=== PATIENT | male | born 1990 | race Caucasian/White ===

== ENCOUNTER 2017-06-06 18:33 | Emergency (ER) | payer OTHER ==
[~2017-06-06] VITALS: Ht 180.3 cm; Wt 100.6 kg
[~2017-06-06 18:33] MED LIST: DPKSR250 PO; FLUO20CA36 PO; KLN5 PO; SRQ200 PO
[2017-06-06 18:46] VITALS: TEMP 36.8; Ht 180.3 cm; Wt 100.6 kg
[2017-06-06] MEDS ORDERED: CEPH500C2 PO (20:00)
[2017-06-06] MEDS ORDERED: HYDR-5688 PO (20:00)
[2017-06-06] MEDS ORDERED: SULF800T23 PO (20:00)
[2017-06-06] MEDS ORDERED: ZIPR60CA PO (20:04)
[2017-06-06] MEDS ORDERED: ALPR1TAB3 PO (20:04)
[2017-06-06] MEDS ORDERED: BUSP15TA70 PO (20:04)
[2017-06-06] MEDS ORDERED: ZOLP10TA PO (20:04)
[2017-06-06 20:18] VITALS: BP 121/69; PULSE 80; O2SAT 97
[2017-06-06] MEDS ORDERED: NORCO 5/325MG HOME PACK ONE (20:29)
[2017-06-06] MEDS ORDERED: SEPTRA DS HOME PACK 1 EA VIAL PO ONE (20:30)
[2017-06-06] MEDS ORDERED: CEPHALEXIN 500MG HOME PACK 1 EA BTL PO ONE (20:30)
--- NOTE | 2017-06-07 02:09 | EMERGENCY ROOM VISIT NOTE ---
ED Visit Note First contact with patient: 19:35 CHIEF COMPLAINT: I have a boil on the left side of my hip. HISTORY OF PRESENT ILLNESS: Mr. Shepherd is an 26-year-old white male who ambulates into the ED complaining of a possible abscess on the left hip. Patient reports he noticed noticed a hard tender area just anterior to the left anterior inferior iliac spine 3 days ago. He reports this area is slowly getting larger, more painful and tender. He reports he has not been able to sleep because of the severity of his pain for the last 2 nights. He denies any precipitating soft tissue injuries or lesions. He reports yesterday the area was slightly erythematous but that seems to have slightly decreased. He reports he has not been picking or squeezing this area. Currently he describes his pain as a deep achy sensation that becomes sharp with palpation. He rates his discomfort 8/10. His pain is nonradiating. His pain worsens with palpation. He has not identified any alleviating factors related to the pain. He has not taken any medication for pain prior to arrival at the hospital. He denies any fevers, chills, sweats, other skin eruptions, other skin color changes, abdominal pain, decreased appetite, nausea, vomiting, chest pain, shortness of breath. REVIEW OF SYSTEMS: As noted above in history of present illness; 8 body systems reviewed with the patient and found to be negative unless noted above otherwise. PAST MEDICAL HISTORY: Pelvic fracture, seizure disorder, hepatitis C, bipolar disorder, depression, status post repair of undescended testicle. CURRENT MEDICATION: Xanax, Ambien, Geodon, BuSpar ALLERGIES TO MEDICATION: Toradol, tramadol. SOCIAL HISTORY: Patient feels safe in his home environment; patient admits to tobacco use. PHYSICAL EXAM: Vital Signs: Date Time Temp Pulse Resp B/P (MAP) Pulse Ox O2 Delivery O2 Flow Rate FiO2 06/06/17 20:18 80 18 121/69 97 06/06/17 18:46 36.8 89 18 134/81 96 Room Air General: 26 year-old white male in mild acute distress due to pain, nontoxic appearing, afebrile and hemodynamically stable. Neurological: Awake, alert and oriented to person, place and time. Answering questions appropriately and following commands. Skin: Warm, dry and pink. Left Pelvis: There is an indurated area just anterior to the anterior, inferior iliac spine which measures about 3.5 cm in diameter. This area is indurated but not fluctuant. There is mild erythema over this area but does not extend beyond the indurated area. There is no pointing or drainage. Additionally the skin above this area is dry and scaly. No lymphangitis. Thorax: Lungs sounds are clear to auscultation and equal bilaterally with symmetrical chest wall movement. No wheezing, rales or rhonchi. No increased respiratory effort. Abdomen: Flat, soft and nontender. Positive bowel sounds in all quadrants. No guarding or rigidity. ED COURSE: Patient is assessed as noted above. A [facility] medication list was reviewed. Patient was educated about his condition and instructed on his treatment plan; he verbalized understanding and agreement with this plan. CLINICAL IMPRESSION: Early skin abscess. DISPOSITION: Patient discharged to home in stable condition; prior to departure he was reassessed and subjectively reported he was feeling the same. PLAN: Was placed on a sliding pain scale of ibuprofen, acetaminophen and [place]; he was given appropriate precautions for narcotics use and his name was checked on state database and no red flags were noted. Patient was prescribed Bactrim and Keflex and instructed on their use. Patient was encouraged to follow-up with PCP or return to the ED in 36-48 hours for recheck. Patient was encouraged return the ED sooner for increasing redness/swelling, red streaking, puslike drainage, fevers or any new/concerning symptoms.
== END 2017-06-06 20:18 | disposition home or self-care (01) ==
LOC: C.EDB 18:35 → C.EDD 20:18
DX: L02.414 Cutaneous abscess of left upper limb (principal); G40.909 Epilepsy, unspecified, not intractable, without status epilepticus; B19.20 Unspecified viral hepatitis C without hepatic coma; F31.9 Bipolar disorder, unspecified; Z79.899 Other long term (current) drug therapy

== ENCOUNTER 2020-06-09 13:07 | Inpatient (IN) ==
[2020-06-09] MEDS ORDERED: OLANZapine 10 MG TAB PO STA (14:18)
--- NOTE | 2020-06-09 14:19 | Emergency Department Note ---
Impression & Plan Seizure, Mood disorder, Suicidal ideation ED Provider Note NAME: CHALO ARIAS JR AGE: 29 SEX: M : 1990 ARRIVES VIA: Walk-In INFORMANT: Patient, Family, assistant case manager ED PROVIDER(S): Ryley Krause DO CHIEF COMPLAINT: Seizures and thoughts of self-harm HPI: Patient is a 29-year-old male who presents the ER brought in on a 302 petition. He was seen here earlier today for 2 seizures. He notes that the doctor did not listen to him and consequently he left. He notes that his family state that his last seizure lasted about 10 seconds. Family noted that he had diffuse body shaking and was not responsive. He has had seizures since about the age of 15. He gets them about once a month. He is never been followed up with neurology. Currently he notes that he has a headache but that is typical after a seizure. He follows with psychiatrist who prescribes him Xanax and he was recently just flipped to Valium. He notes that he did not run out of Xanax. He was seen here earlier and left and came back after [address] in [address] against him. He admits to a headache about 8 out of 10 which is typical post seizure. He denies any focal weakness or numbness. No chest pain shortness of breath nausea vomiting or diarrhea. He denies any suicidal homicidal ideations. ROS: See above HPI for pertinent positives & negatives. A total of 10 systems reviewed and were otherwise negative. PAST MEDICAL HISTORY:See Below PAST SURGICAL HISTORY:See Below FAMILY HISTORY:See Below SOCIAL HISTORY:See Below HOME MEDICATIONS:See Below ALLERGIES:See Below VITALS:See Below PHYSICAL EXAMINATION: GENERAL: Sitting up in bed, alert, agitated, yelling EYE EXAM: normal conjunctiva. PERRL and EOM's grossly intact. OROPHARYNX: no exudate, no erythema, lips, buccal mucosa, and tongue normal and mucous membranes are moist NECK: supple, no nuchal rigidity, no adenopathy, non-tender LUNGS: Clear to auscultation. Normal chest wall mechanics HEART: no murmurs, S1 normal and S2 normal ABDOMEN: abdomen soft, non-tender, normo-active bowel sounds, no masses, no rebound or guarding. BACK: Back is symmetrical on inspection and there is no deformity, no midline tenderness, no CVA tenderness. SKIN: no rashes and no bruising UPPER EXTREMITIES: upper extremities are grossly normal. LOWER EXTREMITIES: No pitting edema. NEURO EXAM: Normal sensorium, cranial nerves II-XII grossly intact, normal speech, no weakness of arms, no weakness of legs. 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 Patient was seen here earlier today for 2 seizures. [facility] clinical care coordinator was able to contact family and family reports that he had an episode of unresponsiveness and diffuse body shaking. Per review of his chart he does have a history of benzo withdrawal seizures. Positions statement notes that he was making suicidal statements but no clear plan. He notes that he has diffuse myalgias. He does have a mild headache which is typical after seizure. He has no other complaints at this time. Neuro exam is intact. IV was attempted to be established but he declined. He was given oral Zyprexa and he became more agitated after blood work and eventually was given IM Haldol and Ativan for sedation as he was a danger to himself and everyone else around him as he was very threatening. Labs show mild leukocytosis of 13,000. No significant anemia. BMP with a slightly elevated chloride. LFTs bilirubin and troponin was negative. TSH unremarkable. UA negative. Tox was positive for benzos and marijuana. Alcohol was negative. CT head was negative. Patient was updated bedside. Recommended inpatient treatment he became extremely agitated. He was sedated using Haldol and Ativan.. 302 was not dispositioned per clinical care coordinator and 3 S. after discussion as he is not medically cleared. Triage Nursing notes reviewed. Prior medical records reviewed Vital Signs: reviewed and remarkable for hypertensive and tachycardic Differential diagnosis: Differential diagnosis includes etiologies such as infection, hypoglycemia, electrolyte abnormalities, cardiac sources, intracerebral event, trauma, toxicologic, neurologic, as well as others were entertained. ER treatment provided: See below Diagnostics interpreted by me: ECG: none Laboratory studies: As stated above and show below. Imaging studies: See below Consultation(s): none ED COURSE: Procedures: none Critical Care: I have personally spent 35 minutes of critical care time in the direct management of this patient. This includes bedside care, interpretation of diag nostic studies, and testing, discussion with consultants, patient, and family members, and other required patient management activities. This 35 minutes is in excess of all separately billable procedures. Past Med/Surg History Medical History (Updated 06/09/20 @ 18:27 by Lianet Bowie PA-C) Acute headache Anxiety Headache Hepatitis C No treatment PTSD (post-traumatic stress disorder) Surgical History (Updated 06/09/20 @ 18:11 by Lianet Bowie PA-C) S/P orchiopexy Family History Other No significant family history Social History (Updated 06/09/20 @ 18:12 by Lianet Bowie PA-C) Smoking Status: Current every day smoker Tobacco Type: Cigarettes and E-cigarettes / Vaping Hx Alcohol Use: No Hx Substance Use: Yes Prescribed Medications: Marijuana Preferred Language: Welsh Feels Safe at Home: No Allergies Allergies Allergy/AdvReac Type Severity Reaction Status Date / Time ketorolac Allergy Intermediate HIVES Verified 05/08/20 15:15 tramadol Allergy Intermediate hives Verified 05/08/20 15:15 acetaminophen AdvReac Severe PT HAS HEP Verified 05/08/20 15:15 C-LIVER DISEASE. Home Meds Home Medications Medication Instructions Recorded Confirmed alprazolam [Xanax] 1 mg PO TID 05/07/20 06/09/20 fluoxetine [Prozac] 10 mg PO HS 05/07/20 06/09/20 Medical Marijuana 1 applic INHALATION BID 06/09/20 06/09/20 diazepam 2 mg PO BID 06/09/20 06/09/20 escitalopram oxalate 5 mg PO DAILY 06/09/20 06/09/20 Results & Data (ED) Vital Signs Vital Signs - 24 hr 06/09/20 13:10 06/09/20 16:30 Pulse Rate 119 H Pulse Rate [Apical] 95 H Respiratory Rate 24 18 Respiratory Effort / Characteristics Non-Labored Spontaneous Respiratory Depth Normal Respiratory Pattern Regular Blood Pressure 155/109 H Blood Pressure [Left Arm] 145/89 H Blood Pressure Mean 124 Blood Pressure Mean [Left Arm] 107 Pulse Oximetry 100 98 Oxygen Delivery Method Room Air Sepsis Recent Fever Within 48 Hours No Sepsis New/Unexplained Change in Mental Status No Sepsis Action Taken by Nursing No Action Required Laboratory Data Result diagrams: 06/09/20 14:26 06/09/20 14:26 Lab Results 06/09/20 06/09/20 06/09/20 Range/Units 14:26 14:26 14:26 WBC 13.46 H (4.8-10.8) K/uL RBC 4.59 L (4.7-6.1) M/uL Hgb 16.1 (14.0-18.0) g/dL Hct 46.4 (42-52) % MCV 101.1 H (80-100) fL MCH 35.1 H (25-34) pg MCHC 34.7 (32-36) g/dL RDW Std Deviation 50.7 H (36.4-46.3) fL RDW Coeff of Wendy 13.5 (11.5-14.5) % Plt Count 161 (130-400) K/uL MPV 10.6 H (7.4-10.4) fL Immature Gran % (Auto) 0.2 % Neut % (Auto) 83.8 % Lymph % (Auto) 11.2 % [place] % (Auto) 4.0 % Eos % (Auto) 0.7 % Baso % (Auto) 0.1 % Neut # (Auto) 11.27 H (1.4-6.5) K/uL Lymph # (Auto) 1.51 (1.2-3.4) K/uL [place] # (Auto) 0.54 (0.11-0.59) K/uL Eos # (Auto) 0.09 (0-0.5) K/uL Baso # (Auto) 0.02 (0-0.2) K/uL Immature Gran # (Auto) 0.03 H (0.00-0.02) K/uL Sodium 142 (136-145) mmol/L Potassium 4.0 (3.5-5.1) mmol/L Chloride 114 H (98-107) mmol/L Carbon Dioxide 24 (21-32) mmol/L Anion Gap 4.0 (3-11) BUN 15 (7-18) mg/dl Creatinine 1.20 (0.6-1.4) mg/dl Est Cr Clr Drug Dosing Not Reportable Est GFR ( Amer) 93.5 Est GFR (Non-Af Amer) 80.7 BUN/Creatinine Ratio 12.8 (10-20) Glucose 105 H (70-99) mg/dl Calcium 8.8 (8.5-10.1) mg/dl Total Bilirubin 0.7 (0.2-1) mg/dl AST 20 (15-37) U/L ALT 48 (12-78) U/L Alkaline Phosphatase 56 (45-117) U/L Total Creatine Kinase (39-308) U/L Troponin I (0-0.045) ng/ml Total Protein 7.2 (6.4-8.2) gm/dl Albumin 3.6 (3.4-5.0) gm/dl Globulin 3.6 (2.5-4.0) gm/dl Albumin/Globulin Ratio 1.0 (0.9-2) TSH 1.240 (0.300-4.500) uIu/ml Urine Color Urine Appearance (Clear) Urine pH (4.5-7.5) Ur Specific [place] (1.000-1.030) Urine Protein (Negative) Urine Glucose (UA) (Negative) Urine Ketones (Negative) Urine Blood (Negative) Urine Nitrite (Negative) Urine Bilirubin (Negative) Urine Urobilinogen (Negative) Ur Leukocyte Esterase (Negative) Salicylates 2.3 L (2.8-20) mg/dl Urine Opiates Screen (Neg) Ur Methadone, Qual (Neg) Acetaminophen < 2 L (10-30) ug/ml Urine Barbiturates (Neg) Ur Phencyclidine (PCP) (Neg) U Amphetamin/Meth Scrn (Neg) MDMA (Ecstasy) Screen (Neg) U Benzodiazepines Scrn (Neg) Ur Cocaine Metabolite (Neg) U Marijuana (THC) Screen (Neg) Ethyl Alcohol mg/dL (0-3) mg/dl 06/09/20 06/09/20 06/09/20 Range/Units 14:26 14:26 14:26 WBC (4.8-10.8) K/uL RBC (4.7-6.1) M/uL Hgb (14.0-18.0) g/dL Hct (42-52) % MCV (80-100) fL MCH (25-34) pg MCHC (32-36) g/dL RDW Std Deviation (36.4-46.3) fL RDW Coeff of Wendy (11.5-14.5) % Plt Count (130-400) K/uL MPV (7.4-10.4) fL Immature Gran % (Auto) % Neut % (Auto) % Lymph % (Auto) % [place] % (Auto) % Eos % (Auto) % Baso % (Auto) % Neut # (Auto) (1.4-6.5) K/uL Lymph # (Auto) (1.2-3.4) K/uL [place] # (Auto) (0.11-0.59) K/uL Eos # (Auto) (0-0.5) K/uL Baso # (Auto) (0-0.2) K/uL Immature Gran # (Auto) (0.00-0.02) K/uL Sodium (136-145) mmol/L Potassium (3.5-5.1) mmol/L Chloride (98-107) mmol/L Carbon Dioxide (21-32) mmol/L Anion Gap (3-11) BUN (7-18) mg/dl Creatinine (0.6-1.4) mg/dl Est Cr Clr Drug Dosing Est GFR ( Amer) Est GFR (Non-Af Amer) BUN/Creatinine Ratio (10-20) Glucose (70-99) mg/dl Calcium (8.5-10.1) mg/dl Total Bilirubin (0.2-1) mg/dl AST (15-37) U/L ALT (12-78) U/L Alkaline Phosphatase (45-117) U/L Total Creatine Kinase 137 (39-308) U/L Troponin I < 0.015 (0-0.045) ng/ml Total Protein (6.4-8.2) gm/dl Albumin (3.4-5.0) gm/dl Globulin (2.5-4.0) gm/dl Albumin/Globulin Ratio (0.9-2) TSH (0.300-4.500) uIu/ml Urine Color Urine Appearance (Clear) Urine pH (4.5-7.5) Ur Specific [place] (1.000-1.030) Urine Protein (Negative) Urine Glucose (UA) (Negative) Urine Ketones (Negative) Urine Blood (Negative) Urine Nitrite (Negative) Urine Bilirubin (Negative) Urine Urobilinogen (Negative) Ur Leukocyte Esterase (Negative) Salicylates (2.8-20) mg/dl Urine Opiates Screen (Neg) Ur Methadone, Qual (Neg) Acetaminophen (10-30) ug/ml Urine Barbiturates (Neg) Ur Phencyclidine (PCP) (Neg) U Amphetamin/Meth Scrn (Neg) MDMA (Ecstasy) Screen (Neg) U Benzodiazepines Scrn (Neg) Ur Cocaine Metabolite (Neg) U Marijuana (THC) Screen (Neg) Ethyl Alcohol mg/dL < 3.0 (0-3) mg/dl 06/09/20 06/09/20 Range/Units 15:05 15:05 WBC (4.8-10.8) K/uL RBC (4.7-6.1) M/uL Hgb (14.0-18.0) g/dL Hct (42-52) % MCV (80-100) fL MCH (25-34) pg MCHC (32-36) g/dL RDW Std Deviation (36.4-46.3) fL RDW Coeff of Wendy (11.5-14.5) % Plt Count (130-400) K/uL MPV (7.4-10.4) fL Immature Gran % (Auto) % Neut % (Auto) % Lymph % (Auto) % [place] % (Auto) % Eos % (Auto) % Baso % (Auto) % Neut # (Auto) (1.4-6.5) K/uL Lymph # (Auto) (1.2-3.4) K/uL [place] # (Auto) (0.11-0.59) K/uL Eos # (Auto) (0-0.5) K/uL Baso # (Auto) (0-0.2) K/uL Immature Gran # (Auto) (0.00-0.02) K/uL Sodium (136-145) mmol/L Potassium (3.5-5.1) mmol/L Chloride (98-107) mmol/L Carbon Dioxide (21-32) mmol/L Anion Gap (3-11) BUN (7-18) mg/dl Creatinine (0.6-1.4) mg/dl Est Cr Clr Drug Dosing Est GFR ( Amer) Est GFR (Non-Af Amer) BUN/Creatinine Ratio (10-20) Glucose (70-99) mg/dl Calcium (8.5-10.1) mg/dl Total Bilirubin (0.2-1) mg/dl AST (15-37) U/L ALT (12-78) U/L Alkaline Phosphatase (45-117) U/L Total Creatine Kinase (39-308) U/L Troponin I (0-0.045) ng/ml Total Protein (6.4-8.2) gm/dl Albumin (3.4-5.0) gm/dl Globulin (2.5-4.0) gm/dl Albumin/Globulin Ratio (0.9-2) TSH (0.300-4.500) uIu/ml Urine Color Yellow Urine Appearance Clear (Clear) Urine pH 6.0 (4.5-7.5) Ur Specific [place] 1.025 (1.000-1.030) Urine Protein Negative (Negative) Urine Glucose (UA) Negative (Negative) Urine Ketones Negative (Negative) Urine Blood Negative (Negative) Urine Nitrite Negative (Negative) Urine Bilirubin Negative (Negative) Urine Urobilinogen Positive H (Negative) Ur Leukocyte Esterase Negative (Negative) Salicylates (2.8-20) mg/dl Urine Opiates Screen Neg (Neg) Ur Methadone, Qual Neg (Neg) Acetaminophen (10-30) ug/ml Urine Barbiturates Neg (Neg) Ur Phencyclidine (PCP) Neg (Neg) U Amphetamin/Meth Scrn Neg (Neg) MDMA (Ecstasy) Screen Neg (Neg) U Benzodiazepines Scrn Pos H (Neg) Ur Cocaine Metabolite Neg (Neg) U Marijuana (THC) Screen Pos H (Neg) Ethyl Alcohol mg/dL (0-3) mg/dl Administered Medications Discontinued Medications Haloperidol Lactate (Haloperidol Lactate 5 Mg/Ml 1 Ml Vial) 10 mg IM NOW STA Stop: 06/09/20 16:17 Last Admin: 06/09/20 16:30 Dose: 10 mg Documented by: [id number] Sodium Chloride (Nss 1000ml) 1,000 mls @ 999 mls/hr IV .Q1H1M ONE Stop: 06/09/20 15:24 Last Admin: 06/09/20 14:50 Dose: Not Given Documented by: [id number] Lorazepam (Lorazepam 2 Mg/Ml Vial (Im Use)) 2 mg IM NOW STA Stop: 06/09/20 16:17 Last Admin: 06/09/20 16:30 Dose: 2 mg Documented by: [id number] Olanzapine (Olanzapine 10 Mg Tab) 10 mg PO NOW STA Stop: 06/09/20 14:19 Last Admin: 06/09/20 14:49 Dose: 10 mg Documented by: [id number] Discharge Plan Visit Data Chief Complaint: Mental Health Evaluation Stated Complaint: 302 ED Provider: Ryley Krause Discharge Problem: Seizure, Mood disorder, Suicidal ideation Patient Disposition: Against Medical Advice Discharge Instructions Interventions: ED Discharge Assessment Last Done: 06/09/20 18:36
[2020-06-09] MEDS ORDERED: SODIUM CHLORIDE 0.9% 1000ML 1,000 ML IV ONE (14:24)
[2020-06-09 14:42] LABS: Basophils # (auto) 0.02 K/uL (0-0.2); Basophils % (auto) 0.1 %; Eosinophils # (auto) 0.09 K/uL (0-0.5); Eosinophils % (auto) 0.7 %; Hematocrit (blood only) 46.4 % (42-52); Hemoglobin 16.1 g/dL (14.0-18.0); Immature Granulocytes # (auto) 0.03 K/uL (0.00-0.02); Immature Granulocytes % (auto) 0.2 %; Lymphocytes # (auto) 1.51 K/uL (1.2-3.4); Lymphocytes % (auto) 11.2 %; Mean Corpuscular Hemoglobin 35.1 pg (25-34); Mean Corpuscular Hgb Conc 34.7 g/dL (32-36); Mean Corpuscular Volume 101.1 fL (80-100); Mean Platelet Volume 10.6 fL (7.4-10.4); Monocytes # (auto) 0.54 K/uL (0.11-0.59); Neutrophils # (auto) 11.27 K/uL (1.4-6.5); Neutrophils % (auto) 83.8 %; Platelet Count 161 K/uL (130-400); RDW Coefficient of Variation 13.5 % (11.5-14.5); RDW Standard Deviation 50.7 fL (36.4-46.3); Red Blood Count 4.59 M/uL (4.7-6.1); White Blood Count 13.46 K/uL (4.8-10.8)
[2020-06-09 14:58] LABS: Alanine Aminotransferase 48 U/L (12-78); Albumin Level 3.6 gm/dl (3.4-5.0); Aspartate Aminotransferase 20 U/L (15-37); BUN Creatinine Ratio 12.8 (10-20); Blood Urea Nitrogen 15 mg/dl (7-18); Calcium 8.8 mg/dl (8.5-10.1); Carbon Dioxide 24 mmol/L (21-32); Chloride 114 mmol/L (98-107); Est GFR (African American) 93.5; Est GFR (Non-African American) 80.7; Glucose 105 mg/dl (70-99); Sodium 142 mmol/L (136-145)
[2020-06-09 15:04] LABS: Acetaminophen < 2 ug/ml (10-30)
[2020-06-09 15:05] LABS: Salicylate 2.3 mg/dl (2.8-20)
[2020-06-09 15:09] LABS: Alkaline Phosphatase 56 U/L (45-117); Bilirubin,Total 0.7 mg/dl (0.2-1); Globulin 3.6 gm/dl (2.5-4.0); Total Protein 7.2 gm/dl (6.4-8.2)
[2020-06-09 15:25] LABS: Appearance Urine Clear (Clear); Bilirubin Urine Negative (Negative); Blood Urine Negative (Negative); Color Urine Yellow; Glucose Urine UA Negative (Negative); Ketones Urine Negative (Negative); Leukocyte Esterase Urine Negative (Negative); Nitrite Urine Negative (Negative); Protein Urine Negative (Negative); Specific Gravity Urine 1.025 (1.000-1.030); Urobilinogen Urine Positive (Negative)
--- NOTE | 2020-06-09 15:46 | CT Scan Report ---
CT head/brain wo con CLINICAL HISTORY: 29 years-old Male with seizure. Acute seizure TECHNIQUE: Multiple axial CT images of the head were obtained without contrast. A dose lowering tech nique was utilized adhering to the principles of ALARA. CT DOSE: 1151.75 mGy.cm COMPARISON: Head CT 05/08/2020 FINDINGS: No acute intracranial hemorrhage, midline shift, intracranial mass, hydrocephalus, territorial ischem ia or abnormal extra-axial collection. Artifact from the patient's earrings limits the study. The calvarium is intact. Trace left mastoid effusion. Mild polypoid mucosal thickening of the right maxillary sinus. Mild mucosal thickening of the ethmoid and maxillary sinuses. Soft tissues and orbit s are unremarkable. IMPRESSION: No acute intracranial abnormality. ACT 112: Negative or not required by law. The above report was generated using voice recognition software. It may contain grammatical, syntax o r spelling errors. Electronically signed by: Narinder Gould M.D. 06/09/2020 3:45 PM
[2020-06-09 16:01] LABS: Amphetamines+Metham, Urine Neg (Neg); Barbiturates, Urine Neg (Neg); Benzodiazepine, Urine Pos (Neg); Cocaine, Urine Neg (Neg); MDMA (Ecstacy), Urine Neg (Neg); Methadone, Urine Neg (Neg); Opiate, Urine Neg (Neg); Phencyclidine, Urine Neg (Neg)
[2020-06-09] MEDS ORDERED: LORazepam 2 MG/ML VIAL (IM USE) IM STA (16:16)
[2020-06-09] MEDS ORDERED: HALOPERIDOL LACTATE 5 MG/ML 1 ML VIAL IM STA (16:16)
--- NOTE | 2020-06-09 18:08 | History & Physical Report ---
Date of Service June 09, 2020 Assessment & Plan (1) Seizure: P is 29 y/o M with PMH hepatitis C, h/o withdrawal seizures, anxiety presented to ER with complaint of 2 seizures earlier today. Patient was seen in ER earlier today for reported 2 witnessed seizures with report last seizure last ing approximately 10 seconds. Denies loss control of bowel/bladder. He reported SIMON and generalized body aching after seizure. Patient left ER earlier today. Pt denies h/o follow up with neurology for seizures Suspect seizures are secondary to benzo withdrawal. Pt does report h/o seizures occurring after he is out of his benzo's. CT head negative. WBC: 13, no significant electrolyte abnormality. UA not consistent with infection. Urine drug screen +benzo, +marijuana, Negative acetaminophen level, salicylate level low at 2.3. Negative ETOH level -No seizure like activity while in ER -In ER given -Admit tele -Seizure precautions -Will add CK level since pt c/o generalized muscle aching -Ativan prn seizure like activity -Consider neurology consult (2) Suicidal ideation: (3) Anxiety: Pt has 302 warrant. His out patient protective services case worker concerned for suicidal statements that he has been making. Patient follows up with outpatient mental health and usually sees Keri Headley PA-C. Has been on Xanax 1 mg 3 times daily for years per pt. States he is recently been on fluoxetine 10 mg daily. Today he was given new prescriptions to change from Xanax to Valium 2 mg twice daily. And change from Prozac to Lexapro 5 mg daily -In ER reported pt became combative. He was given Zyprexa 10mg po. Later given Ativan 2mg IM and Haldol 10mg IM -Pt was irritable and restless upon initial hospitalist exam but not combative -Will continue Xanax and Prozac since he has not started his new prescriptions yet -Suicidal precautions and one to one observation -Psychiatry consult DVT Prophylaxis: low risk, ambulate PCP: Dr Weathers, however has not seen for several years Pt was seen and care coordinated with Dr Scruggs. See addendum History of Present Illness Chief Complaint: Seizure, suicidal ideations Primary Care Provider: Dr Weathers Pt is 29 y/o M with PMH hepatitis C, h/o withdrawal seizures, anxiety presented to ER with complaint of seizures. Patient was seen in ER earlier today for reported 2 witnessed seizures with report last seizure lasting approximately 10 seconds. Patient left ER earlier today. Patient has outpatient protective services case worker who filed 302 warrant. It is reported patient was making suicidal statements. Patient was returned to ER later this afternoon. Patient states after has seizure has headache and generalized body aching. Currently patient reports having headache and generalized body pain which he reports is typical after his seizure. Denies loss of control of bowel or bladder. Patient states has had seizures since he was a teenager. He reports he had seizure in the past when he is out of his Xanax. Patient states is never followed up with neurology in the past. He reports he is on medical marijuana. Patient denies alcohol use. Patient reports follows up with outpatient mental health and usually sees Keri Headley PA-C. He reports he has been on Xanax 1 mg 3 times daily for years. States he is recently been on fluoxetine 10 mg daily. He reports that he was to be changed from Xanax to Valium 2 mg twice daily today and his Prozac has been changed to Lexapro 5 mg daily. Patient was unable to get to the pharmacy yet today to get his new prescriptions filled. Patient states last took his Xanax yesterday. Patient is irritated that he is here and that he cannot go home. He states that he always makes statements that he wishes he was , and reports he is unsure why today this is a problem. Patient denies any plan to this provider. Denies fever/chills, diaphoresis, N/V/D/C, dizziness, vision changes, CP, SOB, orthopnea, palpitations, cough, sore throat, choking, otalgia, rhinorrhea, abdominal pain, paresthesias, weakness, extremity edema, rashes, urinary symptoms. Allergies Allergy/AdvReac Type Severity Reaction Status Date / Time ketorolac Allergy Intermediate HIVES Verified 05/08/20 15:15 tramadol Allergy Intermediate hives Verified 05/08/20 15:15 acetaminophen AdvReac Severe PT HAS HEP Verified 05/08/20 15:15 C-LIVER DISEASE. Home Medications Home Medications Medication Instructions Recorded Confirmed Type alprazolam [Xanax] 1 mg PO TID 05/07/20 06/09/20 History fluoxetine [Prozac] 10 mg PO HS 05/07/20 06/09/20 History Medical Marijuana 1 applic INHALATION BID 06/09/20 06/09/20 History diazepam 2 mg PO BID 06/09/20 06/09/20 History escitalopram oxalate 5 mg PO DAILY 06/09/20 06/09/20 History Past Med/Surg History Medical History (Updated 06/09/20 @ 18:27 by Lianet Bowie PA-C) Acute headache Anxiety Headache Hepatitis C No treatment PTSD (post-traumatic stress disorder) Surgical History (Updated 06/09/20 @ 18:11 by Lianet Bowie PA-C) S/P orchiopexy Family History Other No significant family history Social History (Updated 06/09/20 @ 18:12 by Lianet Bowie PA-C) Smoking Status: Unknown if ever smoked Tobacco Type: Cigarettes and E-cigarettes / Vaping Preferred Language: Maori Glass Installer Required: No Beliefs That Will Affect Care: None Current Living Situation Comment: unable to obtain Feels Safe at Home: No Review of Systems Review of Systems: All systems reviewed & are unremarkable except as noted in HPI & below Physical Exam Physical Exam: General: no acute distress, WDWN Head: normocephalic, atraumatic Eyes: PERRL, conjunctiva non-injected, anicteric ENT: normal inspection external ears, nose, mucous membranes moist Neck: supple, trachea midline Lungs: clear, no respiratory distress, no wheezing/rhonchi/rales CV: RRR, no murmur,no pretibial edema Abd: normal BS, soft, non-tender Ext: no cyanosis, actively moves all 4 extremities Neuro: Initially pt sleeping. Awakens to voice. Pt initially calm then becomes irritable but is not currently aggressive at this time. He does start pacing throughout room and is mad that someone wrote a 302 warrant. A&O x 3, no focal deficits noted Skin: warm, dry Results & Data Results & Data ([facility]) Vital Signs (Past 12 Hours) Vital Signs Pulse Pulse Resp BP BP Pulse Ox 06/09/20 16:30 95 H 18 145/89 H 98 06/09/20 13:10 119 H 24 155/109 H 100 Laboratory Results Short CBC 06/09/20 Range/Units 14:26 WBC 13.46 H (4.8-10.8) K/uL Hgb 16.1 (14.0-18.0) g/dL Hct 46.4 (42-52) % Plt Count 161 (130-400) K/uL BMP 06/09/20 14:26 Sodium 142 Potassium 4.0 Chloride 114 H Carbon Dioxide 24 BUN 15 Creatinine 1.20 Glucose 105 H Calcium 8.8 Cardiac Enzymes 06/09/20 Range/Units 14:26 Troponin I < 0.015 (0-0.045) ng/ml Liver Function 06/09/20 Range/Units 14:26 Total Bilirubin 0.7 (0.2-1) mg/dl AST 20 (15-37) U/L ALT 48 (12-78) U/L Alkaline Phosphatase 56 (45-117) U/L Albumin 3.6 (3.4-5.0) gm/dl Urine 06/09/20 Range/Units 15:05 Urine Color Yellow Urine Appearance Clear (Clear) Urine pH 6.0 (4.5-7.5) Ur Specific [place] 1.025 (1.000-1.030) Urine Protein Negative (Negative) Urine Glucose (UA) Negative (Negative) Diagnostic Findings CT HEAD: IMPRESSION: No acute intracranial abnormality. Code Status & VTE Plan VTE Prophylaxis Plan VTE Prophylaxis will be ordered: No Supervising Physician Co-Signing Physician Notes I have seen and examined the patient and have discussed the case with the provider above. I agree with the assessment and plan as stated. 29 yo M on chronic benzos, medical marijuana who presented to the ER reporting seizures earlier today. His outpatient protective services case worker 302'd him for suicidal statements. Agree with benzo reinstatement as these were thought to be withdrawal seizures. He may need to weaned much more slowly as outpatient. This evening, after having violent outbursts in the ER and receiving zyrexa, haldol and benzos he was sleeping soundly. His HR continued to fall, so I ordered an EKG. He started in on another violent outburst, screaming at the nursing staff and curs ing again and again. He was yelling about how he was miserable and wasn't able to get sleep because everyone wanted an EKG or something. He then lunged at me violently despite me trying to explain why I ordered the EKG. A prabha camacho was called and the information security consultant was able to talk him down. This was after he pushed everyone out of the room screaming and violently slammed the door. As he was threatening staff and trying to take off medical devices including his bus driver/monitor and his IV, he was given additional Ativan as a chemical restraint. His violent restraints were reordered. He declined physical exam so no other info could be gathered. He was screaming so aggressively there was no chance of questioning him successfully. Will consult Neurology formally to weigh in on the seizures. Kael, DO
[2020-06-09] MEDS ORDERED: IBUPROFEN 600 MG TAB PO PRN (18:49)
[2020-06-09] MEDS ORDERED: LORazepam 1 MG/2 ML VIAL IV PRN ×2 (18:49→22:47)
[2020-06-09] MEDS ORDERED: PATIENT'S HEIGHT AND/OR WEIGHT NEEDED SCH (19:00)
[2020-06-09] MEDS: ALPRAZolam 0.5 MG TABLET PO SCH (21:32)
[2020-06-09] MEDS: FLUOXETINE HCL 10 MG CAP PO SCH (21:32)
[2020-06-09] MEDS ORDERED: LORazepam 1 MG/2 ML VIAL IV STA (21:49)
[2020-06-09] MEDS ORDERED: OLANZapine 10 MG/2.1 ML SDV IM ONE (21:49)
[2020-06-09] MEDS: NICOTINE 21 MG/24 HR TDSY TD SCH (22:09)
--- NOTE | 2020-06-10 08:24 | Hospitalist Progress Note ---
Date of Service June 10, 2020 Assessment & Plan (1) Seizure: P is 29 y/o M with PMH hepatitis C, h/o withdrawal seizures, anxiety presented to ER with complaint of 2 seizures prior to admission. Patient was seen in ER earlier for reported 2 witnessed seizures with report last seizure lasting approximately 10 seconds. Denies loss control of bowel/bladder. He reported SIMON and generalized body aching after seizure. Patient left ER earlier. Patient reports history of seizures since he was 15 years old. He is not aware of etiology of seizures. Pt denies h/o follow up with neurology for seizures States that he was planning to establish care with neurology upcoming week Reports having a seizure about every month, last one in April prior to the episodes described above. Patient states that it is usually "stress related". Suspect seizures are secondary to benzo withdrawal. Pt does report h/o seizures occurring after he is out of his benzo's. CT head negative. WBC: 13, no significant electrolyte abnormality. UA not consistent with infection. Urine drug screen +benzo, +marijuana, Negative acetaminophen level, salicylate level low at 2.3. Negative ETOH level -No seizure like activity while in ER -Admitted to tele -Seizure precautions -added CK level since pt c/o generalized muscle aching on admission -Ativan prn seizure like activity -Neurology consulted, appreciate their input (2) Suicidal ideation: (3) Anxiety: Pt has 302 warrant. His out patient block and case maker concerned for suicidal statements that he has been making. Patient follows up with outpatient mental health and usually sees Keri Headley PA-C. Has been on Xanax 1 mg 3 times daily for years per pt. States he is recently been on fluoxetine 10 mg daily. Just prior to admission, he was given new prescriptions to change from Xanax to Valium 2 mg twice daily. And change from Prozac to Lexapro 5 mg daily -In ER reported pt became combative. He was given Zyprexa 10mg po. Later given Ativan 2mg IM and Haldol 10mg IM -Pt was irritable and restless upon initial hospitalist exam on admission but not combative -on admission continued Xanax and Prozac since he has not started his new prescriptions yet -Suicidal precautions and one to one observation -Psychiatry consulted, Valium ordered by psychiatry, patient again agitated when being evaluated by psychiatrist. DVT Prophylaxis: low risk, ambulate PCP: Dr Weathers, however has not seen for several years Admission and Anticipated Discharge Date Admission Date: June 09, 2020 Subjective Patient is lying in bed, sleeping comfortably. Examined patient in the presence of his nurse and one-on-one sitter. Patient's nurse gently woke him up, and offered medication, Valium prescribed by psychiatry earlier. Patient is very pleasant, and cooperative, answering most questions appropriately. Previously, yesterday on admission, patient very agitated, prabha camacho had to be called. Again this morning, when patient was supposed to be evaluated by psychiatrist, patient became very agitated, stating he is a morning person and security was again called. Currently he is calm and pleasant. States that he had 2 seizures yesterday, states that he has been having seizures since he was 15 years old. When I asked him if he follows with neurology, he says that was supposed to get established care with neurologist on Friday/somebody was supposed to call on Friday to get appointment?. He does not recall ever taking Keppra or reason for his seizures. Says that they are stress induced, last one prior to yesterday was in April, says that it was secondary to stress from his grandmother dying, and being in the heat. Says that he has seizure about every month. He does follow with mental health provider. Currently denies any fevers, chills, chest pain, shortness of breath, abdominal pain, nausea or vomiting. Denies headaches. Denies any double vision. Denies any weakness, numbness or tingling. Review of Systems Review of Systems: All systems reviewed & are unremarkable except as noted in HPI & below Constitutional: no fever and no chills Respiratory: no cough and no dyspnea Cardiovascular: no chest pain and no palpitations Gastrointestinal: no abdominal pain, no nausea and no vomiting Musculoskeletal: no stiffness and no muscle weakness Neurologic: no localized weakness, no loss of sensation, no paresthesia, no tremor(s), no dizziness, no headache(s), no abnormal speech and no confusion Psychiatric: + irritability Physical Exam Physical Exam: General: Young male lying in bed, in no acute distress, WDWN Head: normocephalic, atraumatic Eyes: PERRL, conjunctiva non-injected, anicteric ENT: normal inspection external ears, nose, mucous membranes moist Neck: supple, trachea midline Lungs: clear, no respiratory distress, no wheezing/rhonchi/rales CV: RRR, no murmur,no pretibial edema Abd: normal BS, soft, non-tender Ext: no cyanosis, actively moves all 4 extremities Neuro: Initially pt sleeping. Awakens to voice. He is alert and oriented x3, answering questions mostly appropriately, speech is fluent, moves all 4 extremities spontaneously without difficulty Psych: Poor insight Skin: warm, dry Results & Data Results & Data ([facility]) Vital Signs (Past 12 Hours) Vital Signs Pulse Pulse BP 06/10/20 05:08 62 06/09/20 21:18 48 L 93/58 L Laboratory Results 06/09/20 06/09/20 06/09/20 Range/Units 20:42 15:05 15:05 WBC (4.8-10.8) K/uL RBC (4.7-6.1) M/uL Hgb (14.0-18.0) g/dL Hct (42-52) % MCV (80-100) fL MCH (25-34) pg MCHC (32-36) g/dL RDW Std Deviation (36.4-46.3) fL RDW Coeff of Wendy (11.5-14.5) % Plt Count (130-400) K/uL MPV (7.4-10.4) fL Immature Gran % (Auto) % Neut % (Auto) % Lymph % (Auto) % [place]ran % (Auto) % Eos % (Auto) % Baso % (Auto) % Neut # (Auto) (1.4-6.5) K/uL Lymph # (Auto) (1.2-3.4) K/uL [place]ran # (Auto) (0.11-0.59) K/uL Eos # (Auto) (0-0.5) K/uL Baso # (Auto) (0-0.2) K/uL Immature Gran # (Auto) (0.00-0.02) K/uL Sodium (136-145) mmol/L Potassium (3.5-5.1) mmol/L Chloride (98-107) mmol/L Carbon Dioxide (21-32) mmol/L Anion Gap (3-11) BUN (7-18) mg/dl Creatinine (0.6-1.4) mg/dl Est Cr Clr Drug Dosing Est GFR ( Amer) Est GFR (Non-Af Amer) BUN/Creatinine Ratio (10-20) Glucose (70-99) mg/dl POC Glucose 89 (70-99) mg/dl Calcium (8.5-10.1) mg/dl Total Bilirubin (0.2-1) mg/dl AST (15-37) U/L ALT (12-78) U/L Alkaline Phosphatase (45-117) U/L Total Creatine Kinase (39-308) U/L Troponin I (0-0.045) ng/ml Total Protein (6.4-8.2) gm/dl Albumin (3.4-5.0) gm/dl Globulin (2.5-4.0) gm/dl Albumin/Globulin Ratio (0.9-2) TSH (0.300-4.500) uIu/ml Urine Color Urine Appearance (Clear) Urine pH (4.5-7.5) Ur Specific [place] (1.000-1.030) Urine Protein (Negative) Urine Glucose (UA) (Negative) Urine Ketones (Negative) Urine Blood (Negative) Urine Nitrite (Negative) Urine Bilirubin (Negative) Urine Urobilinogen (Negative) Ur Leukocyte Esterase (Negative) Salicylates (2.8-20) mg/dl Urine Opiates Screen Neg (Neg) Ur Methadone, Qual Neg (Neg) Acetaminophen (10-30) ug/ml Urine Barbiturates Neg (Neg) Ur Phencyclidine (PCP) Neg (Neg) U Amphetamin/Meth Scrn Neg (Neg) MDMA (Ecstasy) Screen Neg (Neg) U OH-Alprazolam Confrm Pending U Benzodiazepines Scrn Pos H (Neg) 7-Amino Clonazepam Pending Ur Nordiazepam Confirm Pending U OH-ethylflurazepam Pending U Lorazepam Cnf GC/MS Pending U Oxazepam Confm GC/MS Pending Ur Temazepam Confirm Pending U OH-Triazolam Confirm Pending U OH-Midazolam Confirm Pending Ur Cocaine Metabolite Neg (Neg) U Marijuana (THC) Screen Pos H (Neg) U Marijuana THC Carboxy Pending Drug Screen Comment Pending Ethyl Alcohol mg/dL (0-3) mg/dl 06/09/20 06/09/20 06/09/20 Range/Units 15:05 14:26 14:26 WBC (4.8-10.8) K/uL RBC (4.7-6.1) M/uL Hgb (14.0-18.0) g/dL Hct (42-52) % MCV (80-100) fL MCH (25-34) pg MCHC (32-36) g/dL RDW Std Deviation (36.4-46.3) fL RDW Coeff of Wendy (11.5-14.5) % Plt Count (130-400) K/uL MPV (7.4-10.4) fL Immature Gran % (Auto) % Neut % (Auto) % Lymph % (Auto) % [place] % (Auto) % Eos % (Auto) % Baso % (Auto) % Neut # (Auto) (1.4-6.5) K/uL Lymph # (Auto) (1.2-3.4) K/uL [place] # (Auto) (0.11-0.59) K/uL Eos # (Auto) (0-0.5) K/uL Baso # (Auto) (0-0.2) K/uL Immature Gran # (Auto) (0.00-0.02) K/uL Sodium (136-145) mmol/L Potassium (3.5-5.1) mmol/L Chloride (98-107) mmol/L Carbon Dioxide (21-32) mmol/L Anion Gap (3-11) BUN (7-18) mg/dl Creatinine (0.6-1.4) mg/dl Est Cr Clr Drug Dosing Est GFR ( Amer) Est GFR (Non-Af Amer) BUN/Creatinine Ratio (10-20) Glucose (70-99) mg/dl POC Glucose (70-99) mg/dl Calcium (8.5-10.1) mg/dl Total Bilirubin (0.2-1) mg/dl AST (15-37) U/L ALT (12-78) U/L Alkaline Phosphatase (45-117) U/L Total Creatine Kinase 137 (39-308) U/L Troponin I < 0.015 (0-0.045) ng/ml Total Protein (6.4-8.2) gm/dl Albumin (3.4-5.0) gm/dl Globulin (2.5-4.0) gm/dl Albumin/Globulin Ratio (0.9-2) TSH (0.300-4.500) uIu/ml Urine Color Yellow Urine Appearance Clear (Clear) Urine pH 6.0 (4.5-7.5) Ur Specific [place] 1.025 (1.000-1.030) Urine Protein Negative (Negative) Urine Glucose (UA) Negative (Negative) Urine Ketones Negative (Negative) Urine Blood Negative (Negative) Urine Nitrite Negative (Negative) Urine Bilirubin Negative (Negative) Urine Urobilinogen Positive H (Negative) Ur Leukocyte Esterase Negative (Negative) Salicylates (2.8-20) mg/dl Urine Opiates Screen (Neg) Ur Methadone, Qual (Neg) Acetaminophen (10-30) ug/ml Urine Barbiturates (Neg) Ur Phencyclidine (PCP) (Neg) U Amphetamin/Meth Scrn (Neg) MDMA (Ecstasy) Screen (Neg) U OH-Alprazolam Confrm U Benzodiazepines Scrn (Neg) 7-Amino Clonazepam Ur Nordiazepam Confirm U OH-ethylflurazepam U Lorazepam Cnf GC/MS U Oxazepam Confm GC/MS Ur Temazepam Confirm U OH-Triazolam Confirm U OH-Midazolam Confirm Ur Cocaine Metabolite (Neg) U Marijuana (THC) Screen (Neg) U Marijuana THC Carboxy Drug Screen Comment Ethyl Alcohol mg/dL (0-3) mg/dl 06/09/20 06/09/20 06/09/20 Range/Units 14:26 14:26 14:26 WBC (4.8-10.8) K/uL RBC (4.7-6.1) M/uL Hgb (14.0-18.0) g/dL Hct (42-52) % MCV (80-100) fL MCH (25-34) pg MCHC (32-36) g/dL RDW Std Deviation (36.4-46.3) fL RDW Coeff of Wendy (11.5-14.5) % Plt Count (130-400) K/uL MPV (7.4-10.4) fL Immature Gran % (Auto) % Neut % (Auto) % Lymph % (Auto) % [place] % (Auto) % Eos % (Auto) % Baso % (Auto) % Neut # (Auto) (1.4-6.5) K/uL Lymph # (Auto) (1.2-3.4) K/uL [place] # (Auto) (0.11-0.59) K/uL Eos # (Auto) (0-0.5) K/uL Baso # (Auto) (0-0.2) K/uL Immature Gran # (Auto) (0.00-0.02) K/uL Sodium 142 (136-145) mmol/L Potassium 4.0 (3.5-5.1) mmol/L Chloride 114 H (98-107) mmol/L Carbon Dioxide 24 (21-32) mmol/L Anion Gap 4.0 (3-11) BUN 15 (7-18) mg/dl Creatinine 1.20 (0.6-1.4) mg/dl Est Cr Clr Drug Dosing Not Reportable Est GFR ( Amer) 93.5 Est GFR (Non-Af Amer) 80.7 BUN/Creatinine Ratio 12.8 (10-20) Glucose 105 H (70-99) mg/dl POC Glucose (70-99) mg/dl Calcium 8.8 (8.5-10.1) mg/dl Total Bilirubin 0.7 (0.2-1) mg/dl AST 20 (15-37) U/L ALT 48 (12-78) U/L Alkaline Phosphatase 56 (45-117) U/L Total Creatine Kinase (39-308) U/L Troponin I (0-0.045) ng/ml Total Protein 7.2 (6.4-8.2) gm/dl Albumin 3.6 (3.4-5.0) gm/dl Globulin 3.6 (2.5-4.0) gm/dl Albumin/Globulin Ratio 1.0 (0.9-2) TSH 1.240 (0.300-4.500) uIu/ml Urine Color Urine Appearance (Clear) Urine pH (4.5-7.5) Ur Specific [place] (1.000-1.030) Urine Protein (Negative) Urine Glucose (UA) (Negative) Urine Ketones (Negative) Urine Blood (Negative) Urine Nitrite (Negative) Urine Bilirubin (Negative) Urine Urobilinogen (Negative) Ur Leukocyte Esterase (Negative) Salicylates 2.3 L (2.8-20) mg/dl Urine Opiates Screen (Neg) Ur Methadone, Qual (Neg) Acetaminophen < 2 L (10-30) ug/ml Urine Barbiturates (Neg) Ur Phencyclidine (PCP) (Neg) U Amphetamin/Meth Scrn (Neg) MDMA (Ecstasy) Screen (Neg) U OH-Alprazolam Confrm U Benzodiazepines Scrn (Neg) 7-Amino Clonazepam Ur Nordiazepam Confirm U OH-ethylflurazepam U Lorazepam Cnf GC/MS U Oxazepam Confm GC/MS Ur Temazepam Confirm U OH-Triazolam Confirm U OH-Midazolam Confirm Ur Cocaine Metabolite (Neg) U Marijuana (THC) Screen (Neg) U Marijuana THC Carboxy Drug Screen Comment Ethyl Alcohol mg/dL < 3.0 (0-3) mg/dl 06/09/20 Range/Units 14:26 WBC 13.46 H (4.8-10.8) K/uL RBC 4.59 L (4.7-6.1) M/uL Hgb 16.1 (14.0-18.0) g/dL Hct 46.4 (42-52) % MCV 101.1 H (80-100) fL MCH 35.1 H (25-34) pg MCHC 34.7 (32-36) g/dL RDW Std Deviation 50.7 H (36.4-46.3) fL RDW Coeff of Wendy 13.5 (11.5-14.5) % Plt Count 161 (130-400) K/uL MPV 10.6 H (7.4-10.4) fL Immature Gran % (Auto) 0.2 % Neut % (Auto) 83.8 % Lymph % (Auto) 11.2 % [place]ran % (Auto) 4.0 % Eos % (Auto) 0.7 % Baso % (Auto) 0.1 % Neut # (Auto) 11.27 H (1.4-6.5) K/uL Lymph # (Auto) 1.51 (1.2-3.4) K/uL [place]ran # (Auto) 0.54 (0.11-0.59) K/uL Eos # (Auto) 0.09 (0-0.5) K/uL Baso # (Auto) 0.02 (0-0.2) K/uL Immature Gran # (Auto) 0.03 H (0.00-0.02) K/uL Sodium (136-145) mmol/L Potassium (3.5-5.1) mmol/L Chloride (98-107) mmol/L Carbon Dioxide (21-32) mmol/L Anion Gap (3-11) BUN (7-18) mg/dl Creatinine (0.6-1.4) mg/dl Est Cr Clr Drug Dosing Est GFR ( Amer) Est GFR (Non-Af Amer) BUN/Creatinine Ratio (10-20) Glucose (70-99) mg/dl POC Glucose (70-99) mg/dl Calcium (8.5-10.1) mg/dl Total Bilirubin (0.2-1) mg/dl AST (15-37) U/L ALT (12-78) U/L Alkaline Phosphatase (45-117) U/L Total Creatine Kinase (39-308) U/L Troponin I (0-0.045) ng/ml Total Protein (6.4-8.2) gm/dl Albumin (3.4-5.0) gm/dl Globulin (2.5-4.0) gm/dl Albumin/Globulin Ratio (0.9-2) TSH (0.300-4.500) uIu/ml Urine Color Urine Appearance (Clear) Urine pH (4.5-7.5) Ur Specific [place] (1.000-1.030) Urine Protein (Negative) Urine Glucose (UA) (Negative) Urine Ketones (Negative) Urine Blood (Negative) Urine Nitrite (Negative) Urine Bilirubin (Negative) Urine Urobilinogen (Negative) Ur Leukocyte Esterase (Negative) Salicylates (2.8-20) mg/dl Urine Opiates Screen (Neg) Ur Methadone, Qual (Neg) Acetaminophen (10-30) ug/ml Urine Barbiturates (Neg) Ur Phencyclidine (PCP) (Neg) U Amphetamin/Meth Scrn (Neg) MDMA (Ecstasy) Screen (Neg) U OH-Alprazolam Confrm U Benzodiazepines Scrn (Neg) 7-Amino Clonazepam Ur Nordiazepam Confirm U OH-ethylflurazepam U Lorazepam Cnf GC/MS U Oxazepam Confm GC/MS Ur Temazepam Confirm U OH-Triazolam Confirm U OH-Midazolam Confirm Ur Cocaine Metabolite (Neg) U Marijuana (THC) Screen (Neg) U Marijuana THC Carboxy Drug Screen Comment Ethyl Alcohol mg/dL (0-3) mg/dl Medications Administered Current Inpatient Medications Alprazolam (Alprazolam 0.5 Mg Tablet) 1 mg PO TID [facility] Stop: 07/09/20 20:59 Last Admin: 06/09/20 21:32 Dose: Not Given Documented by: Fluoxetine HCl (Fluoxetine Hcl 10 Mg Cap) 10 mg PO HS [facility] Stop: 07/09/20 20:59 Last Admin: 06/09/20 21:32 Dose: Not Given Documented by: Lorazepam (Ativan) 1 mg in 2 mls @ 0.5 mls/min IV UD PRN PRN Reason: seizure Stop: 07/09/20 18:48 Lorazepam (Ativan) 1 mg in 2 mls @ 2 mls/min IV Q6H PRN PRN Reason: violent agitation Stop: 07/09/20 22:46 Ibuprofen (Ibuprofen 600 Mg Tab) 600 mg PO Q8H PRN PRN Reason: pain Stop: 07/09/20 18:48 Miscellaneous (Remove Nicoderm Patch) 1 ea N/A [id number] [facility] Stop: 07/10/20 08:58 Nicotine (Nicotine 21 Mg/24 Hr Tdsy) 21 mg TD QAM [facility] Stop: 07/09/20 18:14 Last Admin: 06/09/20 22:09 Dose: Not Given Documented by:
[2020-06-10] MEDS ORDERED: clonazePAM 1 MG TAB PO STA (10:30)
[2020-06-10] MEDS ORDERED: HALOPERIDOL LACTATE 5 MG/ML 1 ML VIAL IM PRN (10:31)
[2020-06-10] MEDS ORDERED: haloperidoL 5 MG TAB PO PRN (10:33)
[2020-06-10] MEDS ORDERED: LORazepam 2 MG/ML VIAL (IM USE) IM STA (10:41)
[2020-06-10] MEDS ORDERED: HALOPERIDOL LACTATE 5 MG/ML 1 ML VIAL IM STA (10:41)
[2020-06-10] MEDS ORDERED: diazePAM 5 MG TABLET PO ONE (10:54)
[2020-06-10] MEDS: NICOTINE 21 MG/24 HR TDSY TD SCH (11:08)
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
[2020-06-10] MEDS: ALPRAZolam 0.5 MG TABLET PO SCH (11:37)
[2020-06-10 13:48] LABS: BUN Creatinine Ratio 13.1 (10-20); Creatinine Clr Calc Pharmacy 121.1 ml/min; Magnesium 2.3 mg/dl (1.8-2.4)
[2020-06-10] MEDS: diazePAM 5 MG TABLET PO SCH ×2 (13:54→22:09)
[2020-06-10] MEDS ORDERED: clonazePAM 1 MG TAB PO SCH (14:00)
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
[2020-06-10] MEDS: FLUOXETINE HCL 10 MG CAP PO SCH (22:08)
--- NOTE | 2020-06-11 07:39 | Hospitalist Progress Note ---
Date of Service June 11, 2020 Assessment & Plan (1) Seizure: P is 29 y/o M with PMH hepatitis C, h/o withdrawal seizures, anxiety presented to ER with complaint of 2 seizures prior to admission. Patient was seen in ER earlier for reported 2 witnessed seizures with report last seizure lasting approximately 10 seconds. Denies loss control of bowel/bladder. He reported SIMON and generalized body aching after seizure. Patient left ER earlier. Patient reports history of seizures since he was 15 years old. He is not aware of etiology of seizures. Pt denies h/o follow up with neurology for seizures States that he was planning to establish care with neurology upcoming week Reports having a seizure about every month, last one in April prior to the episodes described above. Patient states that it is usually "stress related". Suspect seizures are secondary to benzo withdrawal. Pt does report h/o seizures occurring after he is out of his benzo's. CT head negative. WBC: 13, no significant electrolyte abnormality. UA not consistent with infection. Urine drug screen +benzo, +marijuana, Negative acetaminophen level, salicylate level low at 2.3. Negative ETOH level -No seizure like activity while in ER -Admitted to tele -Seizure precautions -added CK level since pt c/o generalized muscle aching on admission, CK only mildly elevated -Ativan prn seizure like activity -Neurology consulted, appreciate their input, recommend EEG, suspect medication/benzo withdrawal seizure -Psychiatry prescribed Valium 10 mg 3 times daily in addition to patient's fluoxetine (2) Suicidal ideation: (3) Anxiety: Pt has 302 warrant. His outpatient mental health case manager concerned for suicidal statements that he has been making. Patient follows up with outpatient mental health and usually sees Keri Headley PA-C. Has been on Xanax 1 mg 3 times daily for years per pt. States he is recently been on fluoxetine 10 mg daily. Just prior to admission, he was given new prescriptions to change from Xanax to Valium 2 mg twice daily. And change from Prozac to Lexapro 5 mg daily -In ER reported pt became combative. He was given Zyprexa 10mg po. Later given Ativan 2mg IM and Haldol 10mg IM -Pt was irritable and restless upon initial hospitalist exam on admission but not combative -on admission continued Xanax and Prozac since he has not started his new prescriptions yet -Suicidal precautions and one to one observation -Psychiatry consulted, Valium ordered by psychiatry, patient agitated yesterday when being evaluated by psychiatrist. DVT Prophylaxis: low risk, ambulate PCP: Dr Weathers, however has not seen for several years Admission and Anticipated Discharge Date Admission Date: June 09, 2020 Subjective Patient is lying in bed, sleeping comfortably. Examined patient in the presence of one-on-one sitter. Currently he is calm and cooperative. Yesterday and on admission, patient agitated and code camacho had to be called. He was seen by psychiatry and neurology yesterday, plan for EEG today. Currently denies any fevers, chills, chest pain, shortness of breath, abdominal pain, nausea or vomiting. Denies headaches. Denies any double vision. Denies any weakness, numbness or tingling. Review of Systems Review of Systems: All systems reviewed & are unremarkable except as noted in HPI & below Constitutional: no fever and no chills Respiratory: no cough and no dyspnea Cardiovascular: no chest pain and no palpitations Gastrointestinal: no abdominal pain, no nausea and no vomiting Neurologic: no localized weakness, no tremor(s), no seizure-like activity, no dizziness, no headache(s), no abnormal speech and no confusion Physical Exam Physical Exam: General: Young male lying in bed, in no acute distress, WDWN Head: normocephalic, atraumatic Eyes: PERRL, EOMI, conjunctiva non-injected, anicteric ENT: normal inspection external ears, nose, mucous membranes moist Neck: supple, trachea midline Lungs: clear, no respiratory distress, no wheezing/rhonchi/rales CV: RRR, no murmur,no pretibial edema Abd: normal BS, soft, non-tender Ext: no cyanosis, actively moves all 4 extremities Neuro: Initially pt sleeping. Awakens to voice. He is alert and oriented x3, answering questions mostly appropriately, speech is fluent, moves all 4 extremities spontaneously without difficulty Psych: Poor insight Skin: warm, dry Results & Data Results & Data ([facility]) Vital Signs (Past 12 Hours) Vital Signs Temp Pulse Pulse Resp BP Pulse Ox 06/11/20 02:51 36.6 C 53 L 18 129/83 100 06/10/20 23:22 74 Laboratory Results 06/11/20 06/11/20 06/10/20 Range/Units 07:48 07:48 13:21 WBC 6.65 (4.8-10.8) K/uL RBC 4.90 (4.7-6.1) M/uL Hgb 16.5 (14.0-18.0) g/dL Hct 49.2 (42-52) % MCV 100.4 H (80-100) fL MCH 33.7 (25-34) pg MCHC 33.5 (32-36) g/dL RDW Std Deviation 48.6 H (36.4-46.3) fL RDW Coeff of Wendy 13.2 (11.5-14.5) % Plt Count 159 (130-400) K/uL MPV 10.6 H (7.4-10.4) fL Sodium 143 (136-145) mmol/L Potassium 4.2 (3.5-5.1) mmol/L Chloride 111 H (98-107) mmol/L Carbon Dioxide 27 (21-32) mmol/L Anion Gap 5.0 (3-11) BUN 9 (7-18) mg/dl Creatinine 0.88 (0.6-1.4) mg/dl Est Cr Clr Drug Dosing 130.7 ml/min Est GFR ( Amer) 133.6 Est GFR (Non-Af Amer) 115.3 BUN/Creatinine Ratio 10.4 (10-20) Glucose 75 (70-99) mg/dl Calcium 8.4 L (8.5-10.1) mg/dl Phosphorus 4.0 (2.5-4.9) mg/dl Magnesium 2.3 (1.8-2.4) mg/dl Total Creatine Kinase 343 H 458 H (39-308) U/L Medications Administered Current Inpatient Medications Diazepam (Diazepam 5 Mg Tablet) 10 mg PO TID ELIZABETH Stop: 07/10/20 13:59 Last Admin: 06/10/20 22:09 Dose: 10 mg Documented by: Fluoxetine HCl (Fluoxetine Hcl 10 Mg Cap) 10 mg PO HS ELIZABETH Stop: 07/09/20 20:59 Last Admin: 06/10/20 22:08 Dose: 10 mg Documented by: Haloperidol (Haloperidol 5 Mg Tab) 5 mg PO Q4H PRN PRN Reason: Agitation Stop: 07/10/20 10:32 Last Admin: 06/10/20 11:08 Dose: 5 mg Documented by: Haloperidol Lactate (Haloperidol Lactate 5 Mg/Ml 1 Ml Vial) 5 mg IM Q4H PRN PRN Reason: Agitation Stop: 07/10/20 10:30 Lorazepam (Ativan) 1 mg in 2 mls @ 0.5 mls/min IV UD PRN PRN Reason: seizure Stop: 07/09/20 18:48 Lorazepam (Ativan) 1 mg in 2 mls @ 2 mls/min IV Q6H PRN PRN Reason: violent agitation Stop: 07/09/20 22:46 Ibuprofen (Ibuprofen 600 Mg Tab) 600 mg PO Q8H PRN PRN Reason: pain Stop: 07/09/20 18:48 Miscellaneous (Remove Nicoderm Patch) 1 ea N/A DAILY@0859 [facility] Stop: 07/10/20 08:58 Last Admin: 06/10/20 11:09 Dose: Not Given Documented by: Nicotine (Nicotine 21 Mg/24 Hr Tdsy) 21 mg TD QAM [facility] Stop: 07/09/20 18:14 Last Admin: 06/10/20 11:08 Dose: 21 mg Documented by:
[2020-06-11 08:01] LABS: Hematocrit (blood only) 49.2 % (42-52); Hemoglobin 16.5 g/dL (14.0-18.0); Mean Corpuscular Hemoglobin 33.7 pg (25-34); Mean Corpuscular Hgb Conc 33.5 g/dL (32-36); Mean Corpuscular Volume 100.4 fL (80-100); Mean Platelet Volume 10.6 fL (7.4-10.4); Platelet Count 159 K/uL (130-400); RDW Coefficient of Variation 13.2 % (11.5-14.5); RDW Standard Deviation 48.6 fL (36.4-46.3); White Blood Count 6.65 K/uL (4.8-10.8)
[2020-06-11] MEDS: diazePAM 5 MG TABLET PO SCH ×3 (08:34→20:04)
[2020-06-11] MEDS: NICOTINE 21 MG/24 HR TDSY TD SCH (08:35)
[2020-06-11 09:53] LABS: BUN Creatinine Ratio 10.4 (10-20); Calcium 8.4 mg/dl (8.5-10.1); Creatinine Clr Calc Pharmacy 130.7 ml/min; Est GFR (African American) 133.6; Est GFR (Non-African American) 115.3; Magnesium 2.3 mg/dl (1.8-2.4); Potassium 4.2 mmol/L (3.5-5.1)
[2020-06-11 16:14] LABS: 7-Aminoclonaz, Confirm NEGATIVE ng/mL (<25); Hydro-Alp Ur, GC/MS 68 ng/mL (<25); Hydroxyethylflurazepam, Conf NEGATIVE ng/mL (<50); Hydroxymidazolam Ur, GC/MS NEGATIVE ng/mL (<50); Hydroxytriazolam NEGATIVE ng/mL (<50); Lorazepam, Ur GC/MS NEGATIVE ng/mL (<50); Marijuana Quant, GCMS Urine 3120 ng/mL (<5); Nordiazepam, Confirm NEGATIVE ng/mL (<50); Oxazepam Ur, GC/MS NEGATIVE ng/mL (<50); Temazepam, Confirm NEGATIVE ng/mL (<50)
[2020-06-11] MEDS ORDERED: ONDANSETRON 2 MG OD TAB PO PRN (17:51)
[2020-06-11] MEDS ORDERED: COUGH DROP (SUGAR FREE) LOZ 24 LOZ/1 BOX BUCCAL STA (19:35)
[2020-06-11] MEDS: FLUOXETINE HCL 10 MG CAP PO SCH (20:05)
[2020-06-11] MEDS ORDERED: MELATONIN 3 MG TAB PO PRN (21:30)
[2020-06-12 07:14] VITALS: BP 121/74; TEMP 97.5; O2SAT 98
[2020-06-12] MEDS: NICOTINE 21 MG/24 HR TDSY TD SCH (08:00)
[2020-06-12] MEDS: diazePAM 5 MG TABLET PO SCH (08:02)
--- NOTE | 2020-06-12 10:35 | Psychiatric Progress Note ---
Date of Service June 12, 2020 Impression / Recommendations Impression 29-year-old male with a self-reported history of anxiety, on longstanding benzodiazepine treatment (Xanax) and low-dose fluoxetine which he says was recently switched to Valium and Lexapro, although he had not yet started the new prescriptions prior to admission. Agree with initial consultation that he demonstrates a high degree of character pathology in the form of cluster B (borderline and histrionic) traits. I also agree that from a psychiatric perspective he might benefit from an anticonvulsant such as Lamictal or Depakote for his affective instability and impulsivity, if neurology feels this is indica karen for his seizure disorder. Valium was ordered at 10 mg 3 times daily over the weekend as he appeared to be in benzodiazepine withdrawal, and after discussion with primary attending Dr. Shah, it has been reduced today to 5 mg 3 times daily, with recommendations to taper off this medication given the significant risks and concern for misuse. I attempted to contact his PA at [facility], but had to leave a message. I will asked the liaison nurse to have him sign a release so that records can be sent to her and follow-up arranged within the next week. I have also discontinued his fluoxetine and started his escitalopram 5 mg daily, as prescribed by his outpatient clinician. He has diazepam at home, so do not recommend setting him with additional benzodiazepine prescriptions given the high risk of abuse/misuse/negative outcomes. Risk Factors Assessment Patient has multiple risk factors for suicide, including sex, race, substance abuse, psychiatric disorder, and history of suicidal statements. He is not, however, at imminent risk of harm to himself, as he is consistently denied SI here, has not engaged in self-injurious behavior, is not demonstrating symptoms of depression, has not had an act of furtherance, his mother denies acute safety concerns, and although he has made suicidal statements, these appear to be occurring in the context of attempts to manipulate others/personality disorder. He is unlikely to benefit from inpatient treatment, and I do not believe he meets 302 involuntary commitment criteria at this time given the lack of suicidal thoughts or statements here, or an act of furtherance. Male: Yes : Yes Do You Have Access To A Gun?: No Health Problems: Yes Mental Health Diagnoses: Yes Substance Use Disorders: Yes Previous Attempt: No Hopelessness: No Protective Factors Assessment : No Responsible for Young Children: No Supportive Family: Yes Interval History Identifying Information 29-year-old male with a history of seizures and anxiety who is admitted medically for seizures and seen by psychiatry for SI and 302 warrant, initially seen by Dr. Kauffman 2 days ago, and seen today for follow-up. Chief Complaint "I'm good, I'm fine". Subjective Subjective Patient was seen & assessed and interval progress reviewed with liaison nurse and in the EMR. Patient was initially seen by Dr. Kauffman 2 days ago, and was somewhat agitated and uncooperative. Recommendations were to switch from Xanax to a longer acting benzodiazepine, and he refused Klonopin, so was started on Valium. Per PDMP, he just filled a Valium 2 mg twice daily #60 prescription 3 days ago from RAD[place], [place] [facility] He was also supposed to start escitalopram, but was continued on fluoxetine here. On my assessment today, he was seated on his bed, happily chatting with the POST SECONDARY PROFESSIONAL at his bedside. He wanted to know if he was being discharged, stating he is anxious to leave the hospital. He states mood is "good," and denies suicidal thoughts, plans, or intent to harm himself or others. He is able to relay the recent medication changes made by RADHA Li whom he sees at [facility], and states that he had been on fluoxetine for years but it was no longer working, so he was switched to escitalopram, and that alprazolam was switched to diazepam. His external medication history shows that prescriptions for both diazepam and escitalopram were picked up on 06/09/2020, and he says his mother picked them up for him. He says that he has extensive outpatient services, including a therapist Isaura at [facility], case assembler, and skills psych rehab worker. He says that he does not drive due to ongoing seizures and lack of a driver material handler's license, and that his brother provides transportation for him. He lives with his mother and brother, and says there are good supports. The liaison nurse contacted the patient's mother for collateral information and she reported that he often threatens suicide as a way to manipulate others and get what he wants, but she does not believe that he has ever had a plan or an act of furtherance. She states he has a history of abusing medications, and suspects that he has been misusing his current medications. She said that when he returns home, she will monitor his medication use, and confirmed that he would not have access to firearms in the home. She states that in the past he has been diagnosed with anxiety, PTSD, depression, and personality disorder. Physical Exam Psychiatric Orientation: alert and cooperative Apperance: appropriately dressed, appropriately groomed and appeared stated age Eye Contact: good eye contact Motor Behavior: no abnormal motor movements Mildly hyperverbal, dramatic style of speech. Affect: euthymic affect Became irritable when reviewing recommendations to taper off benzodiazepines. "Really good." Thought Process: goal directed thought process Thought Content: + preoccupation (With benzodiazepines) Suicidal Thoughts: denies suicidal thoughts Homicidal Thoughts: denies homicidal thoughts Hallucinations: no auditory hallucinations Cognition: attention grossly intact and language grossly intact Insight: + limited insight Judgement: + limited judgement Vital Signs (Past 24 Hours) Last Vital Signs Temp 36.4 C L 06/12/20 07:13 Pulse 70 06/12/20 07:13 Resp 18 06/12/20 07:13 BP 121/74 06/12/20 07:13 Pulse Ox 98 06/12/20 07:13 Results & Data ([facility]) Laboratory Results Laboratory Results - last 24 hr 06/09/20 15:05 U OH-Alprazolam Confrm 68 H 7-Amino Clonazepam NEGATIVE Ur Nordiazepam Confirm NEGATIVE U OH-ethylflurazepam NEGATIVE U Lorazepam Cnf GC/MS NEGATIVE U Oxazepam Confm GC/MS NEGATIVE Ur Temazepam Confirm NEGATIVE U OH-Triazolam Confirm NEGATIVE U OH-Midazolam Confirm NEGATIVE U Marijuana THC Carboxy 3120 H Drug Screen Comment SEE NOTE Current Inpatient Medications Current Inpatient Medications: Current Inpatient Medications Diazepam (Diazepam 5 Mg Tablet) 10 mg PO TID ELIZABETH Stop: 07/10/20 13:59 Last Admin: 06/12/20 08:02 Dose: 10 mg Documented by: Fluoxetine HCl (Fluoxetine Hcl 10 Mg Cap) 10 mg PO HS ELIZABETH Stop: 07/09/20 20:59 Last Admin: 06/11/20 20:05 Dose: 10 mg Documented by: Haloperidol (Haloperidol 5 Mg Tab) 5 mg PO Q4H PRN PRN Reason: Agitation Stop: 07/10/20 10:32 Last Admin: 06/10/20 11:08 Dose: 5 mg Documented by: Haloperidol Lactate (Haloperidol Lactate 5 Mg/Ml 1 Ml Vial) 5 mg IM Q4H PRN PRN Reason: Agitation Stop: 07/10/20 10:30 Lorazepam (Ativan) 1 mg in 2 mls @ 0.5 mls/min IV UD PRN PRN Reason: seizure Stop: 07/09/20 18:48 Lorazepam (Ativan) 1 mg in 2 mls @ 2 mls/min IV Q6H PRN PRN Reason: violent agitation Stop: 07/09/20 22:46 Ibuprofen (Ibuprofen 600 Mg Tab) 600 mg PO Q8H PRN PRN Reason: pain Stop: 07/09/20 18:48 Last Admin: 06/12/20 06:47 Dose: 600 mg Documented by: Melatonin (Melatonin 3 Mg Tab) 3 mg PO HS PRN PRN Reason: Sleep Stop: 07/11/20 21:29 Last Admin: 06/11/20 21:46 Dose: 3 mg Documented by: Miscellaneous (Remove Nicoderm Patch) 1 ea N/A DAILY@0859 [facility] Stop: 07/10/20 08:58 Last Admin: 06/12/20 08:02 Dose: 1 ea Documented by: Nicotine (Nicotine 21 Mg/24 Hr Tdsy) 21 mg TD QAM [facility] Stop: 07/09/20 18:14 Last Admin: 06/12/20 08:00 Dose: 21 mg Documented by: Ondansetron HCl (Ondansetron 2 Mg Od Tab) 2 mg PO Q6H PRN PRN Reason: Nausea Stop: 07/11/20 17:50 Last Admin: 06/11/20 18:10 Dose: 2 mg Documented by:
[2020-06-12] MEDS ORDERED: LORazepam 1 MG TAB PO STA (11:03)
--- NOTE | 2020-06-12 11:15 | Hospitalist Progress Note ---
Date of Service June 12, 2020 Assessment & Plan (1) Seizure: Pt is a 29 y/o M with PMH hepatitis C, h/o withdrawal seizures, anxiety presented to ER with complaint of 2 seizures prior to admission. Patient was seen in ER earlier for reported 2 witnessed seizures with report last seizure la sting approximately 10 seconds. Denies loss control of bowel/bladder. He reported SIMON and generalized body aching after seizure. Patient left ER earlier. Patient reports history of seizures since he was 15 years old. He is not aware of etiology of seizures. Pt denies h/o follow up with neurology for seizures States that he was planning to establish care with neurology upcoming week Reports having a seizure about every month, last one in April prior to the episodes described above. Patient states that it is usually "stress related". Suspect seizures are secondary to benzo withdrawal. Pt does report h/o seizures occurring after he is out of his benzo's. CT head negative. WBC: 13, no significant electrolyte abnormality. UA not consistent with infection. Urine drug screen +benzo, +marijuana, Negative acetaminophen level, salicylate level low at 2.3. Negative ETOH level -No seizure like activity while in ER -Admitted to tele -Seizure precautions -added CK level since pt c/o generalized muscle aching on admission, CK only mildly elevated -Ativan prn seizure like activity -Neurology consulted, appreciate their input, recommend EEG, suspect medication/benzo withdrawal seizure, EEG obtained this morning, June 12 -Psychiatry prescribed Valium 10 mg 3 times daily in addition to patient's fluoxetine -Psychiatry evaluated patient today, 06/12, patient does not need 302, collateral information obtained from family, no SI, recommend to follow-up with psychiatry within a week as outpatient. Also recommend not to prescribe any more benzodiazepines as patient just picked up his prescription from his outpatient provider. Recommend to switch to Lexapro as was planned by his outpatient psychiatry provider. Further recommended to taper down valium, now ordered 5 mg 3 times a day. Patient is anxious to go home, likely will be discharged today. (2) Suicidal ideation: (3) Anxiety: Pt has 302 warrant. His outpatient bilingual patient support caseworker concerned for suicidal statements that he has been making. Patient follows up with outpatient mental health and usually sees Keri Headley PA-C. Has been on Xanax 1 mg 3 times daily for years per pt. States he is recently been on fluoxetine 10 mg daily. Just prior to admission, he was given new prescriptions to change from Xanax to Valium 2 mg twice daily. And change from Prozac to Lexapro 5 mg daily -In ER reported pt became combative. He was given Zyprexa 10mg po. Later given Ativan 2mg IM and Haldol 10mg IM -Pt was irritable and restless upon initial hospitalist exam on admission but not combative -on admission continued Xanax and Prozac since he has not started his new prescriptions yet -Suicidal precautions and one to one observation -Psychiatry consulted, Valium ordered by psychiatry, patient agitated at that time when being evaluated by psychiatrist. -Psychiatry evaluated patient today, 06/12, patient does not need 302, collateral information obtained from family-no SI concerns, no SI by patient, recommend to follow-up with psychiatry within a week as outpatient. Also recommend not to prescribe any more benzodiazepines as patient just picked up his prescription from his outpatient provider. Recommend to switch to Lexapro as was planned by his outpatient psychiatry provider. Further recommended to taper down valium, now ordered 5 mg 3 times a day. Patient is anxious to go home, likely will be discharged today. DVT Prophylaxis: low risk, ambulate PCP: Dr Weathers, however has not seen for several years Admission and Anticipated Discharge Date Admission Date: June 09, 2020 Subjective EEG study done this morning. Patient seen by psychiatry, this morning, does not need 302. Patient denies any SI, collateral information from family obtained by psychiatry. Psychiatry does not recommend any new prescriptions for benzodiazepines as patient just picked up the prescriptions. There is also concern for possible abuse. Recommend outpatient psychiatry follow-up within a week.. Currently patient is walking in the hallway, in no acute distress, however com plaining of not able to sleep here and anxious to go home. Otherwise no fevers, chills, chest pain, shortness of breath, numbness, tingling, headache, double vision, or any muscle weakness. Review of Systems Review of Systems: All systems reviewed & are unremarkable except as noted in HPI & below Constitutional: no fever and no chills Respiratory: no cough and no dyspnea Cardiovascular: no chest pain and no palpitations Gastrointestinal: no abdominal pain, no nausea and no vomiting Psychiatric: + anxiety Physical Exam Physical Exam: General: Young male, in no acute distress, WDWN, anxious to go home Head: normocephalic, atraumatic Eyes: PERRL, EOMI, conjunctiva non-injected, anicteric ENT: normal inspection external ears, nose, mucous membranes moist Neck: supple, trachea midline Lungs: clear, no respiratory distress, no wheezing/rhonchi/rales CV: RRR, no murmur,no pretibial edema Abd: normal BS, soft, non-tender Ext: no cyanosis, actively moves all 4 extremities Neuro: alert and oriented x3, answering questions mostly appropriately, speech is fluent, moves all 4 extremities spontaneously without difficulty Psych: Poor insight, anxious Skin: warm, dry Results & Data Results & Data ([facility]) Vital Signs (Past 12 Hours) Vital Signs Temp Pulse Resp BP Pulse Ox 06/12/20 07:13 36.4 C L 70 18 121/74 98
--- NOTE | 2020-06-12 11:44 | Discharge Summary ---
Date of Service June 12, 2020 Admission HPI Per Admitting Provider Pt is 29 y/o M with PMH hepatitis C, h/o withdrawal seizures, anxiety presented to ER with complaint of seizures. Patient was seen in ER earlier today for reported 2 witnessed seizures with report last seizure lasting approximately 10 seconds. Patient left ER earlier today. 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 It is reported patient was making suicidal statements. Patient was returned to ER later this afternoon. Patient states after has seizure has headache and generalized body aching. Currently patient reports having headache and generalized body pain which he reports is typical after his seizure. Denies loss of control of bowel or bladder. Patient states has had seizures since he was a teenager. He reports he had seizure in the past when he is out of his Xanax. Patient states is never followed up with neurology in the past. He reports he is on medical marijuana. Patient denies alcohol use. Patient reports follows up with outpatient mental health and usually sees Keri Headley PA-C. He reports he has been on Xanax 1 mg 3 times daily for years. States he is recently been on fluoxetine 10 mg daily. He reports that he was to be changed from Xanax to Valium 2 mg twice daily today and his Prozac has been changed to Lexapro 5 mg daily. Patient was unable to get to the pharmacy yet today to get his new prescriptions filled. Patient states last took his Xanax yesterday. Patient is irritated that he is here and that he cannot go home. He states that he always makes statements that he wishes he was , and reports he is unsure why today this is a problem. Patient denies any plan to this provider. Denies fever/chills, diaphoresis, N/V/D/C, dizziness, vision changes, CP, SOB, orthopnea, palpitations, cough, sore throat, choking, otalgia, rhinorrhea, abdominal pain, paresthesias, weakness, extremity edema, rashes, urinary symptoms. Admission Exam Per Admitting Provider General: no acute distress, WDWN Head: normocephalic, atraumatic Eyes: PERRL, conjunctiva non-injected, anicteric ENT: normal inspection external ears, nose, mucous membranes moist Neck: supple, trachea midline Lungs: clear, no respiratory distress, no wheezing/rhonchi/rales CV: RRR, no murmur,no pretibial edema Abd: normal BS, soft, non-tender Ext: no cyanosis, actively moves all 4 extremities Neuro: Initially pt sleeping. Awakens to voice. Pt initially calm then becomes irritable but is not currently aggressive at this time. He does start pacing throughout room and is mad that someone wrote a 302 warrant. A&O x 3, no focal deficits noted Skin: warm, dry Principal Diagnosis Suicidal ideations Seizure, possibly due to benzodiazepine withdrawal Discharge Exam General: Young male, in no acute distress, WDWN, anxious to go home Head: normocephalic, atraumatic Eyes: PERRL, EOMI, conjunctiva non-injected, anicteric ENT: normal inspection external ears, nose, mucous membranes moist Neck: supple, trachea midline Lungs: clear, no respiratory distress, no wheezing/rhonchi/rales CV: RRR, no murmur,no pretibial edema Abd: normal BS, soft, non-tender Ext: no cyanosis, actively moves all 4 extremities Neuro: alert and oriented x3, answering questions mostly appropriately, speech is fluent, moves all 4 extremities spontaneously without difficulty Psych: Poor insight, anxious Skin: warm, dry Discharge Data Allergies Allergy/AdvReac Type Severity Reaction Status Date / Time ketorolac Allergy Intermediate HIVES Verified 05/08/20 15:15 tramadol Allergy Intermediate hives Verified 05/08/20 15:15 acetaminophen AdvReac Severe PT HAS HEP Verified 05/08/20 15:15 C-LIVER DISEASE. Consultations 06/09/20 17:01 ED Decision to Admit Stat 06/09/20 18:49 Consult Case Management - Discharge Planning Routine Consult Psychiatry Routine 06/10/20 08:20 Consult Neurology Routine Ordered Studies 06/09/20 15:04 CT head/brain wo con Stat IMPRESSION: No acute intracranial abnormality. Hospital Course (1) Seizure: Pt is a 29 y/o M with PMH hepatitis C, h/o withdrawal seizures, anxiety presented to ER with complaint of 2 seizures prior to admission. Patient was seen in ER earlier for reported 2 witnessed seizures with report last seizure lasting approximately 10 seconds. Denies loss control of bowel/bladder. He reported SIMON and generalized body aching after seizure. Patient left ER earlier. Patient reports history of seizures since he was 15 years old. He is not aware of etiology of seizures. Pt denies h/o follow up with neurology for seizures States that he was planning to establish care with neurology upcoming week Reports having a seizure about every month, last one in April prior to the episodes described above. Patient states that it is usually "stress related". Suspect seizures are secondary to benzo withdrawal. Pt does report h/o seizures occurring after he is out of his benzo's. CT head negative. WBC: 13, no significant electrolyte abnormality. UA not consistent with infection. Urine drug screen +benzo, +marijuana, Negative acetaminophen level, salicylate level low at 2.3. Negative ETOH level -No seizure like activity while in ER -Admitted to tele -Seizure precautions -added CK level since pt c/o generalized muscle aching on admission, CK only mildly elevated -Ativan prn seizure like activity -Neurology consulted, appreciate their input, recommend EEG, suspect medication/benzo withdrawal seizure, EEG obtained this morning, June 12 - discussed with Dr. Langley, EEG results normal, recommend for the patient to establish care with neurology as outpatient and further outpatient studies -Psychiatry initially prescribed Valium 10 mg 3 times daily in addition to patient's fluoxetine -Psychiatry evaluated patient today, 06/12, patient does not need 302, collateral information obtained from family -no SI concerns, patient denies any SIs, recommend to follow-up with psychiatry within a week as outpatient. Also recommend not to prescribe any more benzodiazepines as patient just picked up his prescription from his outpatient provider. Recommend to switch to Lexapro as was planned by his outpatient psychiatry provider. Further recommended to taper down valium, now ordered 5 mg 3 times a day. Patient is anxious to go home, likely will be discharged today. (2) Suicidal ideation: (3) Anxiety: Pt has 302 warrant. His outpatient supervisor case loading concerned for suicidal statements that he has been making. Patient follows up with outpatient mental health and usually sees Keri Headley PA-C. Has been on Xanax 1 mg 3 times daily for years per pt. States he is recently been on fluoxetine 10 mg daily. Just prior to admission, he was given new prescriptions to change from Xanax to Valium 2 mg twice daily. And change from Prozac to Lexapro 5 mg daily -In ER reported pt became combative. He was given Zyprexa 10mg po. Later given Ativan 2mg IM and Haldol 10mg IM -Pt was irritable and restless upon initial hospitalist exam on admission but not combative -on admission continued Xanax and Prozac since he has not started his new prescriptions yet -Suicidal precautions and one to one observation -Psychiatry consulted, Valium ordered by psychiatry, patient agitated at that time when being evaluated by psychiatrist. -Psychiatry evaluated patient today, 06/12, patient does not need 302, collateral information obtained from family-no SI concerns, no SI by patient, recommend to follow-up with psychiatry within a week as outpatient. Also recommend not to prescribe any more benzodiazepines as patient just picked up his prescription from his outpatient provider. Recommend to switch to Lexapro as was planned by his outpatient psychiatry provider. Further recommended to taper down valium, now ordered 5 mg 3 times a day while inpt. Patient is anxious to go home, likely will be discharged today. PCP: Dr Weathers, however has not seen for several years Total Time Total Time Spent Total Time Spent (In Minutes): 40 Total Time Includes: Examination of the Patient, Discharge Planning, Medication Reconciliation and Communication With Other Providers Discharge Plan Discharge Items Patient Disposition: Home - Self-Care Reason For Visit: SEIZURES, SUICIDAL IDEATIONS Discharge Diagnosis: Suicidal ideations Seizure, possibly due to benzodiazepine withdrawal Activity: Per Instructions section Non-emergency contact: Primary Care Provider and Psychiatrist Call non-emergency contact if: you have any medication questions and your symptoms worsen Follow-up/Referrals: PCP,NO [Primary Care Provider] - Diet: Regular Addtl Attending Provider Instructions: You will need to follow-up with your psychiatry (mental health) provider, within a week. Continue medications prescribed by your psychiatry (mental health) provider, Valium 2 mg bid and Lexapro 5 mg daily. Start Lexapro tomorrow. Your EEG results were normal however it is strongly recommended that you establish care with a neurologist, and have outpatient neurology studies done, as your seizures should be evaluated further. Follow-up with your primary care provider within 1 week as well. Pending Studies at Discharge: No Stand-Alone Forms: My [employer], Smoking Cessation, Suicide Prevention Resources Medications and DC Order Prescriptions: Continued diazepam 2 mg tablet 2 mg PO BID RF: 0 escitalopram oxalate 5 mg tablet 5 mg PO DAILY RF: 0 Medical Marijuana 1 applic inhalation BID RF: 0 Discontinued alprazolam [Xanax] 1 mg tablet 1 mg PO TID RF: 0 fluoxetine [Prozac] 10 mg capsule 10 mg PO HS RF: 0 Discharge Orders: Discharge Order (Routine); Ordered 06/12/20 Ordered By: Migue Shah Admission Data Admit Date/Time: 06/09/20 17:29 Attending Provider: Migue Shah Admit Provider: Myrtle Scruggs Primary Care Provider: PCP,NO Other Providers: Myrtle Scruggs ; Oz Kauffman John E
[2020-06-12 12:08] VITALS: PULSE 68
[2020-06-12] MEDS ORDERED: diazePAM 5 MG TABLET PO SCH (14:00)
--- NOTE | 2020-06-12 14:43 | Electroencephalogram ---
EEG Procedure Note Date of Service June 12, 2020 Start / End Times Start Time: 606 End Time: 626 Referring Physician Eric Langley MD History hisotry of seizure like events under stress for 14 years Home Medication List Home Medications Medication Instructions Recorded Confirmed Type Medical Marijuana 1 applic INHALATION BID 06/09/20 06/09/20 History diazepam 2 mg PO BID 06/09/20 06/09/20 History escitalopram oxalate 5 mg PO DAILY 06/09/20 06/09/20 History Inpatient Medication List Discontinued Medications Alprazolam (Alprazolam 0.5 Mg Tablet) 1 mg PO TID ELIZABETH Stop: 07/09/20 20:59 Last Admin: 06/10/20 11:37 Dose: Not Given Documented by: [id number] Admin: 06/09/20 21:32 Dose: Not Given Documented by: [id number] Clonazepam (Clonazepam 1 Mg Tab) 1 mg PO NOW STA Stop: 06/10/20 10:31 Last Admin: 06/10/20 11:37 Dose: Not Given Documented by: [id number] Diazepam (Diazepam 5 Mg Tablet) 10 mg PO NOW ONE Stop: 06/10/20 10:55 Last Admin: 06/10/20 11:08 Dose: 10 mg Documented by: [id number] Diazepam (Diazepam 5 Mg Tablet) 10 mg PO TID ELIZABETH Stop: 07/10/20 13:59 Last Admin: 06/12/20 08:02 Dose: 10 mg Documented by: [id number] Admin: 06/11/20 20:04 Dose: 10 mg Documented by: [id number] Admin: 06/11/20 13:16 Dose: 10 mg Documented by: [id number] Admin: 06/11/20 08:34 Dose: 10 mg Documented by: [id number] Admin: 06/10/20 22:09 Dose: 10 mg Documented by: [id number] Admin: 06/10/20 13:54 Dose: 10 mg Documented by: [id number] Fluoxetine HCl (Fluoxetine Hcl 10 Mg Cap) 10 mg PO HS [facility] Stop: 07/09/20 20:59 Last Admin: 06/11/20 20:05 Dose: 10 mg Documented by: [id number] Admin: 06/10/20 22:08 Dose: 10 mg Documented by: [id number] Admin: 06/09/20 21:32 Dose: Not Given Documented by: [id number] Haloperidol (Haloperidol 5 Mg Tab) 5 mg PO Q4H PRN PRN Reason: Agitation Stop: 07/10/20 10:32 Last Admin: 06/10/20 11:08 Dose: 5 mg Documented by: [id number] Haloperidol Lactate (Haloperidol Lactate 5 Mg/Ml 1 Ml Vial) 10 mg IM NOW STA Stop: 06/09/20 16:17 Last Admin: 06/09/20 16:30 Dose: 10 mg Documented by: [id number] Haloperidol Lactate (Haloperidol Lactate 5 Mg/Ml 1 Ml Vial) 10 mg IM NOW STA Stop: 06/10/20 10:42 Last Admin: 06/10/20 11:42 Dose: Not Given Documented by: [id number] Sodium Chloride (Nss 1000ml) 1,000 mls @ 999 mls/hr IV .Q1H1M ONE Stop: 06/09/20 15:24 Last Admin: 06/09/20 14:50 Dose: Not Given Documented by: [id number] Lorazepam (Ativan) 1 mg in 2 mls @ 2 mls/min IV NOW STA Stop: 06/09/20 21:50 Last Admin: 06/09/20 21:58 Dose: 2 mls/min Documented by: [id number] Ibuprofen (Ibuprofen 600 Mg Tab) 600 mg PO Q8H PRN PRN Reason: pain Stop: 07/09/20 18:48 Last Admin: 06/12/20 06:47 Dose: 600 mg Documented by: [id number] Lorazepam (Lorazepam 2 Mg/Ml Vial (Im Use)) 2 mg IM NOW STA Stop: 06/09/20 16:17 Last Admin: 06/09/20 16:30 Dose: 2 mg Documented by: [id number] Lorazepam (Lorazepam 2 Mg/Ml Vial (Im Use)) 2 mg IM NOW STA Stop: 06/10/20 10:42 Last Admin: 06/10/20 11:08 Dose: Not Given Documented by: [id number] Lorazepam (Lorazepam 1 Mg Tab) 1 mg PO NOW STA Stop: 06/12/20 11:04 Last Admin: 06/12/20 11:14 Dose: 1 mg Documented by: [id number] Melatonin (Melatonin 3 Mg Tab) 3 mg PO HS PRN PRN Reason: Sleep Stop: 07/11/20 21:29 Last Admin: 06/11/20 21:46 Dose: 3 mg Documented by: [id number] Menthol (Cough Drop (Sugar Free) Tyson 24 Tyson/1 Box) 1 tyson BUCCAL NOW STA Stop: 06/11/20 19:36 Last Admin: 06/11/20 19:41 Dose: 1 tyson Documented by: [id number] Miscellaneous (Remove Nicoderm Patch) 1 ea N/A [id number] [facility] Stop: 07/10/20 08:58 Last Admin: 06/12/20 08:02 Dose: 1 ea Documented by: [id number] Admin: 06/11/20 08:35 Dose: 1 ea Documented by: [id number] Admin: 06/10/20 11:09 Dose: Not Given Documented by: [id number] Nicotine (Nicotine 21 Mg/24 Hr Tdsy) 21 mg TD QAM [facility] Stop: 07/09/20 18:14 Last Admin: 06/12/20 08:00 Dose: 21 mg Documented by: [id number] Admin: 06/11/20 08:35 Dose: 21 mg Documented by: [id number] Admin: 06/10/20 11:08 Dose: 21 mg Documented by: [id number] Admin: 06/09/20 22:09 Dose: Not Given Documented by: [id number] Olanzapine (Olanzapine 10 Mg Tab) 10 mg PO NOW STA Stop: 06/09/20 14:19 Last Admin: 06/09/20 14:49 Dose: 10 mg Documented by: [id number] Olanzapine (Olanzapine 10 Mg/2.1 Ml Sdv) Confirm Administered Dose 10 mg IM .STK-MED ONE Stop: 06/09/20 21:50 Last Admin: 06/09/20 23:10 Dose: Not Given Documented by: [id number] Ondansetron HCl (Ondansetron 2 Mg Od Tab) 2 mg PO Q6H PRN PRN Reason: Nausea Stop: 07/11/20 17:50 Last Admin: 06/11/20 18:10 Dose: 2 mg Documented by: [id number] Description This is a 21 electrode EEG with a single channel dedicated to limited EKG. The electrodes were placed in accordance with the International 10-20 system. During wakefulness there is a background alpha rhythm of up to 10 Hz and of 30 uv that is symmetrical in posterior head regions with symmetrical mid frequency theta of modest voltage and bifrontal beta of modest voltage that extends posteriorly and may reflect the use of benzodiazepines . photic stimulation is associated with no abnormal activatioons and no seizure activity is seen multiple movement artefacts are recorded and these are captured on video drowsy bursts of slower activity are seen toward the end of the recording Interpretation Nomrmal eeg during wakefulness and drowsiness Clinical Correlation Normal study revaling no potentially epileptogenic activity but unfortunately this does not exclude the diagnosis of epilepsy Eric Langley MD
[2020-06-13] MEDS ORDERED: ESCITALOPRAM OXALATE 10 MG TAB PO SCH (09:00)
== END 2020-06-12 13:00 | disposition home or self-care (01) | DRG 897 ==
LOC: ED 13:07 → 2W 17:29 → SUATTDRO 17:29 → 2W 18:36